=== PATIENT | male | born 2000 | race Hispanic/Latino ===

== ENCOUNTER 2019-03-03 09:21 | Inpatient (IN) | payer SELFPAY ==
[2019-03-03] MEDS ORDERED: ONDANSETRON 4 MG/2 ML VIAL ONE ×2 (10:48→14:01)
[2019-03-03] MEDS ORDERED: MORPHINE 4 MG/ML SYR ONE ×2 (10:48→11:34)
[2019-03-03] MEDS ORDERED: NA CHLORIDE 0.9% 1,000 ML ONE ×2 (10:48→12:20)
[2019-03-03 11:01] LABS: Absolute Lymphocytes (CBC) 1.7 K/uL (0.7-4.9); Basophils % 0.3 % (0-1.3); Eosinophils % 0.4 % (0-4.4); Hematocrit 43.6 % (39.6-49.0); MPV 9.3 fL (7.6-11.3); Monocytes % 7.6 % (3.3-12.3)
[2019-03-03 11:17] LABS: ALT/SGPT 55 U/L (12-78); AST/SGOT 42 U/L (15-37); Albumin 3.9 g/dL (3.4-5.0); Alkaline Phosphatase 142 U/L (45-117); BUN Blood Urea Nitrogen 15 mg/dL (7-18); Bicarbonate 27 mmol/L (21-32); Bilirubin Total 0.9 mg/dL (0.2-1.0); Glucose Level 113 mg/dL (74-106); Potassium 3.7 mmol/L (3.5-5.1); Protein, Total 8.5 g/dL (6.4-8.2); Sodium Level 141 mmol/L (136-145)
[2019-03-03] MEDS ORDERED: TETANUS & DIPHTHERIA TOX,ADULT 0.5 ML VIAL ONE (11:35)
--- NOTE | 2019-03-03 11:52 | RAD REPORT ---
EXAM DESCRIPTION: US - Extremity Nonvascular Limited - 03/03/2019 11:41 am CLINICAL HISTORY: Right groin swelling COMPARISON: None FINDINGS: 5 x 1 x 3 centimeter heterogeneous fluid collection is present which is vascular. This has the appearance of an abscess IMPRESSION: 5 centimeter right groin abscess
[2019-03-03] MEDS ORDERED: PIPER/TAZO/NS 3.375gm 3.375 GM/100 ML BAG ONE (12:13)
--- NOTE | 2019-03-03 12:33 | EDPHYS ---
Physician Documentation [facility] Name: Benjamin Mendiola Age: 18 yrs Sex: Male : 2000 Arrival Date: 03/03/2019 Time: 09:25 Bed 7 Private MD: None, None ED Physician Ned Troy HPI: 03/03 10:40 This 18 yrs old Male presents to ER via Ambulatory with complaints of Abscess. pm1 10:40 The patient presents with an abscess of the suprapubic area. Description: The affected pm1 area is large, 6 inches wide, raised, no drainage but area of pointing that appeared today. Onset: The symptoms/episode began/occurred 4 day(s) ago. Possible cause(s): unknown. Associated signs and symptoms: Pertinent positives: nausea, vomiting, Pertinent negatives: discharge, drainage. Modifying factors: the symptoms are alleviated by nothing, the symptoms are aggravated by nothing. Severity of symptoms: in the emergency department the symptoms are actually worse. The patient has not experienced similar symptoms in the past. The patient has not recently seen a physician. Historical: - Allergies: 09:51 No Known Allergies; iw - Home Meds: 09:51 None [Active]; iw - PMHx: 09:51 None; iw - PSHx: 09:51 None; iw - Immunization history:: Last tetanus immunization: unknown. - Social history:: Smoking status: . - Ebola Screening: : Patient negative for fever greater than or equal to 101.5 degrees Fahrenheit, and additional compatible Ebola Virus Disease symptoms Patient denies exposure to infectious person Patient denies travel to an Ebola-affected area in the 21 days before illness onset No symptoms or risks identified at this time. ROS: 10:51 Eyes: Negative for injury, pain, redness, and discharge. pm1 10:51 Neuro: Negative for headache, weakness, numbness, tingling, and seizure. 10:51 ENT: Negative for injury, pain, and discharge, Neck: Negative for injury, pain, and swelling, Cardiovascular: Negative for chest pain, palpitations, and edema, Abdomen/GI: Negative for abdominal pain, nausea, vomiting, diarrhea, and constipation, Back: Negative for injury and pain, MS/Extremity: Negative for injury and deformity. 10:51 Constitutional: Positive for body aches, Negative for fever. 10:51 Abdomen/GI: Positive for nausea and vomiting, Negative for abdominal pain, diarrhea, constipation. 10:51 Skin: Positive for abscess, cellulitis, of the suprapubic area. 12:51 Respiratory: Positive for cough, with yellow sputum, Negative for shortness of breath, pm1 wheezing. Exam: 11:00 Constitutional: This is a well developed, well nourished patient who is awake, alert, pm1 and in no acute distress. Head/Face: Normocephalic, atraumatic. Eyes: Pupils equal round and reactive to light, extra-ocular motions intact. Lids and lashes normal. Conjunctiva and sclera are non-icteric and not injected. Cornea within normal limits. Periorbital areas with no swelling, redness, or edema. ENT: Nares patent. No nasal discharge, no septal abnormalities noted. Tympanic membranes are normal and external auditory canals are clear. Oropharynx with no redness, swelling, or masses, exudates, or evidence of obstruction, uvula midline. Mucous membranes moist. Neck: Trachea midline, no thyromegaly or masses palpated, and no cervical lymphadenopathy. Supple, full range of motion without nuchal rigidity, or vertebral point tenderness. No Meningismus. Chest/axilla: Normal chest wall appearance and motion. Nontender with no deformity. No lesions are appreciated. Cardiovascular: Regular rate and rhythm with a normal S1 and S2. No gallops, murmurs, or rubs. Normal PMI, no JVD. No pulse deficits. Respiratory: Lungs have equal breath sounds bilaterally, clear to auscultation and percussion. No rales, rhonchi or wheezes noted. No increased work of breathing, no retractions or nasal flaring. Abdomen/GI: Soft, non-tender, with normal bowel sounds. No distension or tympany. No guarding or rebound. No evidence of tenderness throughout. Back: No spinal tenderness. No costovertebral tenderness. Full range of motion. 11:00 MS/ Extremity: Pulses equal, no cyanosis. Neurovascular intact. Full, normal range of motion. 11:00 Skin: Appearance: normal except for affected area, abscess, of the suprapubic area, No drainage. 6 in by 3 in area of indurated area with pointing at central upper area of induration. 11:00 Neuro: Orientation: is normal, Motor: is normal, moves all fours, Sensation: is normal, no obvious gross deficits. Vital Signs: 09:51 BP 132 / 68; Pulse 100; Resp 16; Temp 97.5; Pulse Ox 96% ; Weight 95.25 kg; Height 5 iw ft. 10 in. (177.80 cm); Pain 10/10; 11:30 BP 140 / 91; Pulse 90; Resp 16; Pulse Ox 98% on R/A; Pain 8/10; hb 12:30 BP 136 / 86; Pulse 89; Resp 15; Pulse Ox 100% on R/A; hb 09:51 Body Mass Index 30.13 (95.25 kg, 177.80 cm) iw MDM: 10:16 Patient medically screened. pm1 10:51 Data reviewed: vital signs. Data interpreted: Pulse oximetry: on room air is 96 %. pm1 Interpretation: normal. 12:15 Physician consultation: Yaritza Steen MD was called at 12:10, was contacted at 12:10, pm1 regarding admission, she discussed the case with Dr. Meyers. No need for admission to the hospitalist. Without any preexisting conditions, Dr. Meyers will admit the patient under his service. . 12:24 Physician consultation: Mike Meyers MD was called at 12:15, was contacted at 12:17, pm1 regarding admission, patient's condition, and will see patient in ED, Keep patient NPO, give the patient Vancomycin and clindamycin for MRSA coverage. He will come within the hour to perform I\T\D in the OR. Call supervisor hide house and OR crew for I\T\D. 03/03 10:23 Order name: CBC with Diff pm1 03/03 10:23 Order name: CMP; Complete Time: 11:19 pm1 03/03 10:23 Order name: Procalcitonin; Complete Time: 11:47 pm1 03/03 10:23 Order name: Lactate; Complete Time: 11:19 pm1 03/03 10:25 Order name: CBC with Automated Diff; Complete Time: 11:47 EDMS 03/03 10:24 Order name: Blood Culture Adult (2) pm1 03/03 10:25 Order name: US Extrmty Nonvasular Limited; Complete Time: 11:53 pm1 03/03 11:22 Order name: Wound Culture pm1 03/03 11:53 Order name: NPO; Complete Time: 11:55 pm1 Administered Medications: 10:48 Drug: Zofran 4 mg Route: IVP; Site: right antecubital; hb 11:22 Follow up: Response: No adverse reaction hb 10:49 Drug: NS 0.9% 1000 ml Route: IV; Rate: 1000 ml; Site: right antecubital; hb 11:33 Follow up: Response: No adverse reaction; IV Status: Completed infusion; IV Intake: hb 1000ml 10:49 Drug: morphine 4 mg Route: IVP; Site: right antecubital; hb 11:20 Follow up: Response: No adverse reaction hb 11:24 Drug: morphine 4 mg Route: IVP; Site: right antecubital; hb 12:00 Follow up: Response: No adverse reaction hb 11:44 Drug: Tetanus-Diphtheria Toxoid Adult 0.5 ml {Musculoskeletal Physician: [employer]. Exp: hb 12/08/2020. Lot #: [id number]. } Route: IM; Site: right deltoid; 12:09 Follow up: Response: No adverse reaction hb 12:08 Drug: Zosyn 3.375 grams Route: IVPB; Infused Over: 60 mins; Site: right antecubital; hb 12:08 Drug: NS 0.9% 1000 ml Route: IV; Rate: 100 ml/hr; Site: right antecubital; hb 12:42 Drug: Clindamycin 900 mg Route: IVPB; Infused Over: 30 mins; Site: right antecubital; hb Disposition: 15:17 Co-signature as Attending Physician, Ned Troy MD. Disposition: 03/03/19 12:32 Hospitalization ordered by Mike Meyers for Inpatient Admission. Preliminary diagnosis is Cutaneous abscess of abdominal wall. - Bed requested for Operating Room. - Status is Inpatient Admission. hb - Condition is Stable. - Problem is new. - Symptoms have improved. UTI on Admission? No Signatures: Dispatcher [employer] Remedios Méndez RN RN iw Marinas, Patrick, NP SCIENTIFIC PROGRAMMER ANALYST pm1 Catia Martinez RN RN hb Starr, Gregory, MD MD gs Corrections: (The following items were deleted from the chart) 12:52 10:51 ENT: Negative for injury, pain, and discharge, Neck: Negative for injury, pain, pm1 and swelling, Cardiovascular: Negative for chest pain, palpitations, and edema, Respiratory: Negative for shortness of breath, cough, wheezing, and pleuritic chest pain, Abdomen/GI: Negative for abdominal pain, nausea, vomiting, diarrhea, and constipation, Back: Negative for injury and pain, MS/Extremity: Negative for injury and deformity, pm1 13:06 12:32 Hospitalization Ordered by Mike Meyers MD for Observation. Preliminary diagnosis pm1 is Cutaneous abscess of abdominal wall. Bed requested for Operating Room. Status is Observation. Condition is Stable. Problem is new. Symptoms have improved. UTI on Admission? No. pm1 13:31 13:06 03/03/2019 12:32 Hospitalization Ordered by Mike Meyers MD for Inpatient hb Admission. Preliminary diagnosis is Cutaneous abscess of abdominal wall. Bed requested for Operating Room. Status is Inpatient Admission. Condition is Stable. Problem is new. Symptoms have improved. UTI on Admission? No. pm1
--- NOTE | 2019-03-03 12:33 | ER ---
Nurse's Notes [facility] Name: Benjamin Mendiola Age: 18 yrs Sex: Male : 2000 Arrival Date: 03/03/2019 Time: 09:25 Bed 7 Private MD: None, None Diagnosis: Cutaneous abscess of abdominal wall Presentation: 03/03 09:48 Presenting complaint: Patient states: abscess to right groin area X 4 days, pt states iw about nickel sized head, not draining, area of redness about 6 inches around it, also has been vomiting. Transition of care: patient was not received from another setting of care. Onset of symptoms was February 27, 2019. Risk Assessment: Do you want to hurt yourself or someone else? Patient reports no desire to harm self or others. Initial Sepsis Screen: Does the patient meet any 2 criteria? No. Patient's initial sepsis screen is negative. Does the patient have a suspected source of infection? No. Patient's initial sepsis screen is negative. Care prior to arrival: None. 09:48 Method Of Arrival: Ambulatory iw 09:48 Acuity: ALONSO 3 iw Historical: - Allergies: 09:51 No Known Allergies; iw - Home Meds: 09:51 None [Active]; iw - PMHx: 09:51 None; iw - PSHx: 09:51 None; iw - Immunization history:: Last tetanus immunization: unknown. - Social history:: Smoking status: . - Ebola Screening: : Patient negative for fever greater than or equal to 101.5 degrees Fahrenheit, and additional compatible Ebola Virus Disease symptoms Patient denies exposure to infectious person Patient denies travel to an Ebola-affected area in the 21 days before illness onset No symptoms or risks identified at this time. Screenin:36 Abuse screen: Denies threats or abuse. Denies injuries from another. Nutritional hb screening: No deficits noted. Tuberculosis screening: No symptoms or risk factors identified. Fall Risk None identified. Assessment: 10:30 General: Appears in no apparent distress. uncomfortable, Behavior is cooperative, hb anxious. Pain: Pain currently is 10 out of 10 on a pain scale. Neuro: Level of Consciousness is awake, alert, obeys commands, Oriented to person, place, time, situation. Cardiovascular: Capillary refill < 3 seconds Patient's skin is warm and dry. Respiratory: Airway is patent Trachea midline Respiratory effort is even, unlabored, Respiratory pattern is regular, symmetrical. GI: No signs and/or symptoms were reported involving the gastrointestinal system. : No signs and/or symptoms were reported regarding the genitourinary system. EENT: No signs and/or symptoms were reported regarding the EENT system. Derm: Abscess located on suprapubic area is golf ball sized, has no drainage, is hot to touch, is red, is raised. 11:28 Reassessment: abscess draining purulent greenish yellow fluid, TEACHER ASSISTANT Gume notified, hb wound culture collected. . 11:32 Reassessment: US at bedside. hb 12:11 Reassessment: Patient appears in no apparent distress at this time. Patient and/or hb family updated on plan of care and expected duration. Pain level reassessed. Patient is alert, oriented x 3, equal unlabored respirations, skin warm/dry/pink. 13:00 Reassessment: Patient appears in no apparent distress at this time. Patient and/or hb family updated on plan of care and expected duration. Pain level reassessed. Patient is alert, oriented x 3, equal unlabored respirations, skin warm/dry/pink. Vital Signs: 09:51 BP 132 / 68; Pulse 100; Resp 16; Temp 97.5; Pulse Ox 96% ; Weight 95.25 kg; Height 5 iw ft. 10 in. (177.80 cm); Pain 10/10; 11:30 BP 140 / 91; Pulse 90; Resp 16; Pulse Ox 98% on R/A; Pain 8/10; hb 12:30 BP 136 / 86; Pulse 89; Resp 15; Pulse Ox 100% on R/A; hb 09:51 Body Mass Index 30.13 (95.25 kg, 177.80 cm) iw ED Course: 09:25 Patient arrived in ED. dl4 09:25 None, None is Private Physician. dl4 09:51 Triage completed. iw 09:52 Arm band placed on. iw 10:14 Gume Foreman NP is PHCP. pm1 10:14 Ned Troy MD is Attending Physician. pm1 10:29 Catia Martinez, MITCHELL is Primary Nurse. hb 10:30 Patient has correct armband on for positive identification. Placed in gown. Bed in low hb position. Call light in reach. Side rails up X 1. 10:49 CBC with Diff Sent. hb 11:38 Ultrasound completed. Patient tolerated well. sg3 11:39 US Extrmty Nonvasular Limited In Process Unspecified. EDMS 12:30 Mike Meyers MD is Hospitalizing Provider. pm1 13:29 No provider procedures requiring assistance completed. Patient admitted, IV remains in hb place. Administered Medications: 10:48 Drug: Zofran 4 mg Route: IVP; Site: right antecubital; hb 11:22 Follow up: Response: No adverse reaction hb 10:49 Drug: NS 0.9% 1000 ml Route: IV; Rate: 1000 ml; Site: right antecubital; hb 11:33 Follow up: Response: No adverse reaction; IV Status: Completed infusion; IV Intake: hb 1000ml 10:49 Drug: morphine 4 mg Route: IVP; Site: right antecubital; hb 11:20 Follow up: Response: No adverse reaction hb 11:24 Drug: morphine 4 mg Route: IVP; Site: right antecubital; hb 12:00 Follow up: Response: No adverse reaction hb 11:44 Drug: Tetanus-Diphtheria Toxoid Adult 0.5 ml {Distance Education Director: [employer]. Exp: hb 12/08/2020. Lot #: [id number]. } Route: IM; Site: right deltoid; 12:09 Follow up: Response: No adverse reaction hb 12:08 Drug: Zosyn 3.375 grams Route: IVPB; Infused Over: 60 mins; Site: right antecubital; hb 12:08 Drug: NS 0.9% 1000 ml Route: IV; Rate: 100 ml/hr; Site: right antecubital; hb 12:42 Drug: Clindamycin 900 mg Route: IVPB; Infused Over: 30 mins; Site: right antecubital; hb Intake: 11:33 IV: 1000ml; Total: 1000ml. Outcome: 12:32 Decision to Hospitalize by Provider. pm1 13:29 Admitted to OR accompanied by nurse, via wheelchair, with chart, Report called to roque Haque RN 13:29 Condition: stable 13:29 Instructed on the need for admit, Demonstrated understanding of instructions. 13:31 Patient left the ED. Signatures: Dispatcher [employer] EDRemedios Garcia RN RN iw Marinas, Patrick, TEACHER ASSISTANT TEACHER ASSISTANT pm1 Catia Martinez, RN RN hb Karley Michele sg3 Rashi Chang dl4
[2019-03-03] MEDS ORDERED: CLINDAMYCIN 900MG/D5W 900 MG/50 ML IVPB IV ONE (12:54)
[2019-03-03] MEDS ORDERED: PROPOFOL 200 MG/20 ML VIAL IV ONE (13:33)
[2019-03-03] MEDS ORDERED: FENTANYL CITR 100 MCG/2 ML ONE ×2 (13:34→14:07)
[2019-03-03] MEDS ORDERED: LIDOCAINE 2% MPF 5 ML VIAL ONE (13:35)
[2019-03-03] MEDS: VANCOMYCIN 1.75 GM in NA CHLORIDE 0.9% 500 ML IVPB SCH (13:36)
[2019-03-03] MEDS ORDERED: KETOROLAC 30 MG/ML INJ ONE (14:01)
[2019-03-03] MEDS ORDERED: DEXAMETHASONE 10 MG/ML VIAL ONE (14:01)
--- NOTE | 2019-03-03 14:06 | P.OP ---
Preoperative diagnosis: R Groin abscess Postoperative diagnosis: same Primary procedure: I and D and Debridement R Groin Abscess Anesthesia: gen Estimated blood loss: min Specimen: pus Findings: as above Complications: None Transferred to: Recovery Room Condition: Good
[2019-03-03] MEDS ORDERED: CHLORHEXIDINE GLUCO 4% 120 ML TOP SCH (14:10)
[2019-03-03] MEDS: CLINDAMYCIN INJ 600 MG in NA CHLORIDE 0.9% 50 ML IV SCH (17:19)
--- NOTE | 2019-03-03 17:49 | PREOPHP ---
Date of Admission: 03/03/2019 Reason For Admission: Infection, right groin. History Of Present Illness: The patient is a 18-year-old gentleman, who comes in with 4-day history of right groin infection associated with redness, swelling, minimal discharge; had an ultrasound, whi ch showed an abscess and leukocytosis; was admitted for incision and drainage, IV antibiotics. Awake and alert, no complaint. He had a similar infection couple of years ago, which was MRSA Proteus and Streptococcus pyogenes that was in the axilla and in the hand. Review of Systems: Otherwise, unremarkable. Past Medical History: Negative. Past Surgical History: Previous I and D. Allergies: NO ALLERGIES. Family History: Noncontributory. Social History: Does not smoke. Drinks occasionally. Physical Examination: Vital Signs: Stable, afebrile. General: Awake, alert, oriented x3. Head and Neck: Cranial nerves 2 through 12 are grossly within normal limits. No neck masses. No JV D. Throat clear. Neck is supple. Chest: Clear. Heart: S1 and S2. Abdomen: Soft. Extremities: Neurovascularly intact. Neuro: Nonfocal. On the right groin, there is approximately a 6 x 6 cm erythema, warmth edema with minimal opening wit h minimal discharge, tender. White count is 16.6 with a left shift. Procalcitonin and lactic acid within normal limits. Assessment: Abscess, cellulitis; right groin. Plan: Admit n.p.o., IV fluid, IV antibiotic, to the OR for incision, drainage, and debridement. The patient and family understand the risks, benefits, and alternatives and agrees to procedure. ROEL/MODL Voice ID: [id number]
[2019-03-03] MEDS: MUPIROCIN 2% OINT 22GM TUBE TOP SCH (21:00)
[2019-03-03] MEDS: HYDROCODONE/APAP 7.5/325 MG TAB PO PRN (22:19)
[2019-03-04] MEDS ORDERED: VANCOMYCIN 1 GM/VIAL ONE (00:02)
[2019-03-04] MEDS ORDERED: NA CHLORIDE 0.9% 500 ML ONE (00:02)
[2019-03-04] MEDS: CLINDAMYCIN INJ 600 MG in NA CHLORIDE 0.9% 50 ML IV SCH ×3 (00:30→16:56)
[2019-03-04] MEDS: VANCOMYCIN 1.75 GM in NA CHLORIDE 0.9% 500 ML IVPB SCH ×2 (01:36→13:20)
--- NOTE | 2019-03-04 01:40 | OP ---
Date of Procedure: 03/03/2019 Surgeon: Mike Meyers MD Preoperative Diagnosis: Abscess and cellulitis, right groin. Postoperative Diagnosis: Abscess and cellulitis, right groin. Procedure: Incision, drainage and debridement of right groin abscess. Estimated Blood Loss: Minimal. Specimen: Pus. Finding: As above. Anesthesia: General. Complications: None. Disposition: The patient tolerated the procedure in stable condition, taken to the Recovery in good general condition. Procedure In Detail: The patient was brought to the OR, placed in supine position. General anesthes ia was begun. The patient was prepped and draped in usual sterile fashion. Marcaine 0.5% was infilt rated locally. Then, 15-blade was used to make a 4 cm incision in the right groin. Subcutaneous tis kristopher divided. Pus evacuated. The culture was done. Loculation was broken up. Wound irrigated. Nec rotic tissue debrided. Bleeding controlled with cautery. Wet-to-dry normal saline dressing change a pplied. The patient tolerated the procedure in stable condition, taken to Recovery in good general condition. ROEL/MODL Voice ID: [id number] Report ID: [id number]
[2019-03-04] MEDS: HYDROCODONE/APAP 7.5/325 MG TAB PO PRN ×2 (03:57→07:53)
[2019-03-04 06:15] LABS: Absolute Lymphocytes (CBC) 1.8 K/uL (0.7-4.9); Basophils % 0.1 % (0-1.3); Eosinophils % 0.1 % (0-4.4); Hematocrit 38.3 % (39.6-49.0); Lymphocytes % 13.2 % (15.3-44.8); MPV 9.5 fL (7.6-11.3); Monocytes % 8.9 % (3.3-12.3); RBC Red Blood Cell Count 4.37 M/uL (4.33-5.43)
[2019-03-04] MEDS: HYDROMORPHONE HCL 1 MG/ML INJ IV PRN ×2 (10:12→22:37)
[2019-03-04] MEDS: MUPIROCIN 2% OINT 22GM TUBE TOP SCH ×2 (10:34→20:50)
--- NOTE | 2019-03-04 16:23 | PN ---
Date of Progress Note: 03/04/2019 Subjective: The patient is awake, alert. No complaint. Vital signs stable. Afebrile. White count is still elevated at 13,000. Dressing is clean, dry, intact. Wound did not have any purulence. De creasing erythema. Assessment: Status post incision, drainage, and debridement of right groin abscess and cellulitis. Recommendations: Continue IV antibiotics. Likely discharge tomorrow. Wound care as ordered. Await culture and sensitivity. /MODL Voice ID: [id number] Report ID: [id number]
[2019-03-05] MEDS: CLINDAMYCIN INJ 600 MG in NA CHLORIDE 0.9% 50 ML IV SCH ×2 (00:37→09:16)
[2019-03-05] MEDS: VANCOMYCIN 1.75 GM in NA CHLORIDE 0.9% 500 ML IVPB SCH (01:43)
[2019-03-05 05:39] LABS: Absolute Lymphocytes (CBC) 3.4 K/uL (0.7-4.9); Basophils % 0.4 % (0-1.3); Eosinophils % 1.9 % (0-4.4); Hematocrit 41.5 % (39.6-49.0); Lymphocytes % 31.9 % (15.3-44.8); MPV 9.2 fL (7.6-11.3); Monocytes % 9.5 % (3.3-12.3); RBC Red Blood Cell Count 4.77 M/uL (4.33-5.43)
[2019-03-05] MEDS: MUPIROCIN 2% OINT 22GM TUBE TOP SCH (09:18)
[2019-03-05] MEDS ORDERED: FENTANYL CITR 100 MCG/2 ML ONE (10:47)
[2019-03-05] MEDS: HYDROCODONE/APAP 7.5/325 MG TAB PO PRN (12:20)
[2019-03-05] MEDS ORDERED: ONDANSETRON 4 MG/2 ML VIAL IV ONE (12:48)
[2019-03-05] MEDS ORDERED: ONDANSETRON 4 MG/2 ML VIAL ONE (12:58)
[2019-03-05] MEDS ORDERED: VANCOMYCIN 2 GM in NA CHLORIDE 0.9% 500 ML IVPB SCH (13:00)
[2019-03-05] MEDS: HYDROMORPHONE HCL 1 MG/ML INJ IV PRN (13:17)
--- NOTE | 2019-03-05 16:52 | DS ---
Date of Discharge: 03/05/2019 Admitting Diagnoses: Right groin abscess and cellulitis. Discharge Diagnoses: Right groin abscess and cellulitis. Procedure Performed: Incision, drainage, and debridement of right groin abscess. Hospital Course: The patient is a 18-year-old gentleman who underwent aforementioned procedure, post operatively still had leukocytosis, was kept an extra day for IV antibiotics. Cultures were growing gram-positive cocci and gram-negative rods. Sensitivities are pending. Wound is clean. White count today is normal. He started on a diet, ambulating. Pain controlled with p.o. pain medication. The patient will be discharged to home. Disposition: Home. Condition: Stable. Discharge Instructions: Resume home medications and diet. Activity as tolerated. Cipro 500 mg p.o. q.12, doxycycline 100 mg p.o. b.i.d., Tylenol No. 3 one tablet p.o. q.4 p.r.n. pain. Wet-to-dry nor mal saline dressing changes daily. Follow up in my office in 1 week. Bactroban cream to nose and th e umbilicus b.i.d. and Hibiclens soap. /MODL Voice ID: [id number] Report ID: [id number]
== END 2019-03-05 14:54 | disposition home or self-care (01) | DRG 581 ==
LOC: ER 09:21 → ERHOLD 13:03 → 2ND 14:36
PROVIDERS: ADMIT Surgery; ATTEND Surgery
PROC: 0JDC0ZZ Extraction of Pelvic Region Subcutaneous Tissue and Fascia, Open Approach (ICD-10-PCS; 2019-03-03)
PROC: 0J9C0ZZ Drainage of Pelvic Region Subcutaneous Tissue and Fascia, Open Approach (ICD-10-PCS; principal; 2019-03-03 13:30)
DX: L02.214 Cutaneous abscess of groin (principal); L03.314 Cellulitis of groin; B96.89 Other specified bacterial agents as the cause of diseases classified elsewhere; Z23 Encounter for immunization
CPT/HCPCS: 36415; 76882; 80053; 80202; 83605; 84145; 85025; 87040; 87070; 87205; 90471; 90714; 96361; 96374; 96375; 99285; J1100; J1170; J2405; J2543; J2704; J3010; J7030

== ENCOUNTER 2019-05-02 05:47 | Emergency (ER) | payer SELFPAY ==
[2019-05-02] MEDS ORDERED: MORPHINE 4 MG/ML SYR ONE (06:29)
[2019-05-02] MEDS ORDERED: ONDANSETRON 4 MG/2 ML VIAL ONE (06:29)
[2019-05-02 07:24] LABS: Absolute Lymphocytes (CBC) 2.2 K/uL (0.7-4.9); Basophils % 0.4 % (0-1.3); Lymphocytes % 17.2 % (15.3-44.8); RBC Red Blood Cell Count 4.42 M/uL (4.33-5.43)
[2019-05-02 07:38] LABS: BUN Blood Urea Nitrogen 18 mg/dL (7-18); Bicarbonate 26 mmol/L (21-32); Glucose Level 112 mg/dL (74-106); Potassium 3.9 mmol/L (3.5-5.1); Sodium Level 141 mmol/L (136-145)
[2019-05-02] MEDS ORDERED: LIDOCAINE 1% MPF 30 ML VIAL ONE (07:44)
[2019-05-02] MEDS ORDERED: HYDROMORPHONE HCL 0.5 MG/0.5 ML INJ ONE (08:08)
[2019-05-02] MEDS ORDERED: HYDROMORPHONE HCL 1 MG/ML INJ ONE (08:47)
--- NOTE | 2019-05-02 09:16 | ER ---
Nurse's Notes [facility] Name: Benjamin Mendiola Age: 18 yrs Sex: Male : 2000 Arrival Date: 05/02/2019 Time: 05:49 Bed 7 Private MD: Diagnosis: Pilonidal cyst with abscess Presentation: 05/02 06:06 Presenting complaint: Patient states: Abscess to top of buttocks x 5-6 days; States lp1 taking left over Doxycycline from previous surgery x 3 days with no relief; Hx of similar abscess to groin about a month ago. Transition of care: patient was not received from another setting of care. Onset of symptoms was May 02, 2019. Risk Assessment: Do you want to hurt yourself or someone else? Patient reports no desire to harm self or others. Initial Sepsis Screen: Does the patient meet any 2 criteria? No. Patient's initial sepsis screen is negative. Does the patient have a suspected source of infection? No. Patient's initial sepsis screen is negative. Care prior to arrival: None. 06:06 Method Of Arrival: Ambulatory lp1 06:06 Acuity: ALONSO 4 lp1 Historical: - Allergies: 06:09 Aspirin; lp1 - Home Meds: 06:09 None [Active]; lp1 - PMHx: 06:09 None; lp1 - PSHx: 06:09 Abscess removal; lp1 - Immunization history:: Adult Immunizations up to date. - Social history:: Smoking status: Patient/guardian denies using tobacco, Patient uses street drugs, marijuana. - Ebola Screening: : No symptoms or risks identified at this time. Screenin:11 Abuse screen: Denies threats or abuse. Denies injuries from another. Nutritional lp1 screening: No deficits noted. Tuberculosis screening: No symptoms or risk factors identified. Fall Risk None identified. Assessment: 06:09 General: Appears in no apparent distress. Behavior is calm. Pain: Complains of pain in lp1 coccyx Pain currently is 8 out of 10 on a pain scale. Neuro: Level of Consciousness is awake, alert, obeys commands, Oriented to person, place, time, situation. Cardiovascular: Patient's skin is warm and dry. Respiratory: Respiratory effort is even, unlabored. GI: No signs and/or symptoms were reported involving the gastrointestinal system. : No signs and/or symptoms were reported regarding the genitourinary system. EENT: No signs and/or symptoms were reported regarding the EENT system. Derm: Skin is pink, warm \T\ dry. Abscess located on coccyx is half dollar sized, has no drainage, is hot to touch, is red, is raised. Musculoskeletal: No deficits noted. 08:18 Reassessment: Patient appears in no apparent distress at this time. Patient and/or sg family updated on plan of care and expected duration. Pain level reassessed. Patient is alert, oriented x 3, equal unlabored respirations, skin warm/dry/pink. awaiting Ulysses PAPPAS for I/D. Vital Signs: 06:09 BP 123 / 67; Pulse 86; Resp 18; Temp 98.7; Pulse Ox 98% on R/A; Weight 95.25 kg; Pain lp1 8/10; 08:00 BP 122 / 66; Pulse 87; Resp 17; Pulse Ox 100% on R/A; Pain 8/10; sg ED Course: 05:49 Patient arrived in ED. cl3 06:06 Nga Hastings, RN is Primary Nurse. lp1 06:08 Triage completed. lp1 06:09 Arm band placed on left wrist. lp1 06:11 Patient has correct armband on for positive identification. Placed in gown. lp1 06:17 [facility] Se[facility]. jr8 06:17 Ned Troy MD is Attending Physician. jr8 06:35 Initial lab(s) drawn, by me, sent to lab. Missed attempt(s): 20 gauge in right lp1 antecubital area. 06:45 Inserted saline lock: 22 gauge in right hand, using aseptic technique. lp1 07:15 Primary Nurse role handed off by Nga Hastings, MITCHELL sg 07:15 Handy Stone, MITCHELL is Primary Nurse. sg 07:15 No provider procedures requiring assistance completed. Lab(s) recollected, by me, sent sg to lab. 08:40 Assist provider with I \T\ D: of an abscess on pilonidal cyst Set up I\T\D tray. Performed sg by Ulysses PAPPAS Wound packed. iodoform gauze, Dressing with ABD pad, Patient tolerated well. 09:15 Mike Meyers MD is Referral Physician. jr8 09:23 IV discontinued, intact, bleeding controlled, No redness/swelling at site. Pressure ss dressing applied. Administered Medications: 06:46 Drug: morphine 4 mg {Note: RASS 0.} Route: IVP; Site: right hand; lp1 07:40 Follow up: Response: No adverse reaction; Pain is unchanged, physician notified; RASS: sg Restless (+1) 06:46 Drug: Zofran 4 mg Route: IVP; Site: right hand; lp1 07:40 Follow up: Response: No adverse reaction; RASS: Restless (+1) sg 08:10 Drug: Dilaudid 0.5 mg {Note: RASS +1 .} Route: IVP; Site: right wrist; sg 08:40 Follow up: Response: No adverse reaction; Pain is unchanged, physician notified; RASS: sg Agitated (+2) 08:17 Drug: Lidocaine (1 %) 1 vials {Note: medication administered by Gucci PAPPAS.} Volume: sg 20 ml; Route: Infiltration; 08:45 Drug: Dilaudid 1 mg {Note: RASS of +2.} Route: IVP; Site: right wrist; sg 09:23 Follow up: Response: No adverse reaction; Pain is unchanged, physician notified; RASS: sg Alert and Calm (0) Outcome: 09:15 Discharge ordered by . jr8 09:23 Discharged to home ambulatory, with family. 09:23 Condition: improved 09:23 Discharge instructions given to patient, family, Instructed on discharge instructions, follow up and referral plans. medication usage, Demonstrated understanding of instructions, follow-up care, medications, wound care, Prescriptions given X 2. 09:24 Patient left the ED. Signatures: Handy Stone RN RN sg Patrica Rios RN RN Nga Hastings RN RN lp1 Ulysses Seay PA PA jr8 Nya Simon cl3 Corrections: (The following items were deleted from the chart) 08:16 08:10 Dilaudid 0.5 mg IVP in right wrist sg sg
--- NOTE | 2019-05-02 09:17 | EDPHYS ---
Physician Documentation [facility] Name: Benjamin Mendiola Age: 18 yrs Sex: Male : 2000 Arrival Date: 05/02/2019 Time: 05:49 Bed 7 Private MD: ED Physician Ned Troy HPI: 05/02 06:45 This 18 yrs old Male presents to ER via Ambulatory with complaints of Abscess. jr8 06:45 The patient presents with an abscess of the sacral region. Description: The affected jr8 area is moderate sized, well demarcated, erythematous, fluctuant. Onset: The symptoms/episode began/occurred gradually, over the last few days. Possible cause(s): unknown. Associated signs and symptoms: The patient has no apparent associated signs or symptoms. Modifying factors: the symptoms are alleviated by nothing, the symptoms are aggravated by movement, pressure, sitting, squeezing the lesion and expressing the contents, touching. Severity of symptoms: At their worst the symptoms were mild, in the emergency department the symptoms are unchanged. The patient has experienced a previous episode. The patient has not recently seen a physician. Historical: - Allergies: 06:09 Aspirin; lp1 - Home Meds: 06:09 None [Active]; lp1 - PMHx: 06:09 None; lp1 - PSHx: 06:09 Abscess removal; lp1 - Immunization history:: Adult Immunizations up to date. - Social history:: Smoking status: Patient/guardian denies using tobacco, Patient uses street drugs, marijuana. - Ebola Screening: : No symptoms or risks identified at this time. ROS: 06:45 Eyes: Negative for injury, pain, redness, and discharge, ENT: Negative for injury, jr8 pain, and discharge, Neck: Negative for injury, pain, and swelling, Cardiovascular: Negative for chest pain, palpitations, and edema, Respiratory: Negative for shortness of breath, cough, wheezing, and pleuritic chest pain, Abdomen/GI: Negative for abdominal pain, nausea, vomiting, diarrhea, and constipation, Back: Negative for injury and pain, MS/Extremity: Negative for injury and deformity, Neuro: Negative for headache, weakness, numbness, tingling, and seizure. 06:45 Skin: Positive for abscess. Exam: 06:45 Eyes: Pupils equal round and reactive to light, extra-ocular motions intact. Lids and jr8 lashes normal. Conjunctiva and sclera are non-icteric and not injected. Cornea within normal limits. Periorbital areas with no swelling, redness, or edema. ENT: Nares patent. No nasal discharge, no septal abnormalities noted. Tympanic membranes are normal and external auditory canals are clear. Oropharynx with no redness, swelling, or masses, exudates, or evidence of obstruction, uvula midline. Mucous membranes moist. Neck: Trachea midline, no thyromegaly or masses palpated, and no cervical lymphadenopathy. Supple, full range of motion without nuchal rigidity, or vertebral point tenderness. No Meningismus. Cardiovascular: Regular rate and rhythm with a normal S1 and S2. No gallops, murmurs, or rubs. Normal PMI, no JVD. No pulse deficits. Respiratory: Lungs have equal breath sounds bilaterally, clear to auscultation and percussion. No rales, rhonchi or wheezes noted. No increased work of breathing, no retractions or nasal flaring. Abdomen/GI: Soft, non-tender, with normal bowel sounds. No distension or tympany. No guarding or rebound. No evidence of tenderness throughout. Back: No spinal tenderness. No costovertebral tenderness. Full range of motion. MS/ Extremity: Pulses equal, no cyanosis. Neurovascular intact. Full, normal range of motion. Neuro: Awake and alert, GCS 15, oriented to person, place, time, and situation. Cranial nerves II-XII grossly intact. Motor strength 5/5 in all extremities. Sensory grossly intact. Cerebellar exam normal. Normal gait. 06:45 Skin: Patient has moderate sized pilonidal abscess present at the sacral region with erythema and fluctuance present. No surrounding cellulitis . Vital Signs: 06:09 BP 123 / 67; Pulse 86; Resp 18; Temp 98.7; Pulse Ox 98% on R/A; Weight 95.25 kg; Pain lp1 8/10; 08:00 BP 122 / 66; Pulse 87; Resp 17; Pulse Ox 100% on R/A; Pain 8/10; sg Procedures: 09:14 I \T\ D: Incision and drainage was performed for an abscess of the pilonidal cyst Prepped jr8 with Betadine, Anesthetized with 20 ml's 1% Lidocaine. Incised with #11 blade. Drained large amount purulent fluid. bloody fluid. Loculations removed. Abscess cavity explored. Packed with iodoform gauze, Dressing: sterile 4x4 gauze, the patient tolerated the procedure well. MDM: 06:17 Patient medically screened. jr8 09:14 Data reviewed: vital signs, nurses notes, lab test result(s), and as a result, I will jr8 discharge patient. Data interpreted: Pulse oximetry: on room air is 100 %. Interpretation: normal. Counseling: I had a detailed discussion with the patient and/or guardian regarding: the historical points, exam findings, and any diagnostic results supporting the discharge/admit diagnosis, lab results, the need for outpatient follow up, a general surgeon, to return to the emergency department if symptoms worsen or persist or if there are any questions or concerns that arise at home. Response to treatment: the patient's symptoms have markedly improved after treatment. 05/02 06:27 Order name: CBC with Diff; Complete Time: 07:36 [facility] 05/02 06:27 Order name: Basic Metabolic Panel; Complete Time: 07:59 [facility] 05/02 06:27 Order name: IV; Complete Time: 06:44 [facility] 05/02 07:07 Order name: Labs - recollect needed; Complete Time: 07:14 eb Administered Medications: 06:46 Drug: morphine 4 mg {Note: RASS 0.} Route: IVP; Site: right hand; lp1 07:40 Follow up: Response: No adverse reaction; Pain is unchanged, physician notified; RASS: sg Restless (+1) 06:46 Drug: Zofran 4 mg Route: IVP; Site: right hand; lp1 07:40 Follow up: Response: No adverse reaction; RASS: Restless (+1) sg 08:10 Drug: Dilaudid 0.5 mg {Note: RASS +1 .} Route: IVP; Site: right wrist; sg 08:40 Follow up: Response: No adverse reaction; Pain is unchanged, physician notified; RASS: sg Agitated (+2) 08:17 Drug: Lidocaine (1 %) 1 vials {Note: medication administered by Gucci ALMAZAN} Volume: sg 20 ml; Route: Infiltration; 08:45 Drug: Dilaudid 1 mg {Note: RASS of +2.} Route: IVP; Site: right wrist; sg 09:23 Follow up: Response: No adverse reaction; Pain is unchanged, physician notified; RASS: sg Alert and Calm (0) Disposition: 05/02/19 09:15 Discharged to Home. Impression: Pilonidal cyst with abscess. - Condition is Stable. - Discharge Instructions: Skin Abscess, Pilonidal Cyst, Incision and Drainage of a Pilonidal Cyst, Care After. - Prescriptions for Tylenol- Codeine #3 300-30 mg Oral Tablet - take 2 tablets by ORAL route every 6 hours As needed; 20 tablet. Bactrim DS 800- 160 mg Oral Tablet - take 1 tablet by ORAL route every 12 hours for 7 days; 14 tablet. - Work release form, Medication Reconciliation Form, Thank You Letter, Antibiotic Education, Prescription Opioid Use form. - Follow up: Mike Meyers MD; When: 48 Hours; Reason: Wound Recheck, Recheck today's complaints, Continuance of care, Re-evaluation by your physician. - Problem is new. - Symptoms have improved. Signatures: Dispatcher [employer] EDMS Handy Stone RN MITCHELL Patrica Rios RN RN ss Nga Hastings RN RN lp1 Ulysses Seay PA PA jr8 Ruby Dahl Corrections: (The following items were deleted from the chart) 09:24 09:15 05/02/2019 09:15 Discharged to Home. Impression: Pilonidal cyst with abscess. ss Condition is Stable. Forms are Work release form, Medication Reconciliation Form, Thank You Letter, Antibiotic Education, Prescription Opioid Use. Follow up: Dr. Mike Meyers; When: 48 Hours; Reason: Wound Recheck, Recheck today's complaints, Continuance of care, Re-evaluation by your physician. Problem is new. Symptoms have improved. jr8
== END 2019-05-02 09:24 | disposition home or self-care (01) ==
LOC: ER 05:47
PROC: 0H98XZZ Drainage of Buttock Skin, External Approach (ICD-10-PCS; principal; 2019-05-02)
DX: L05.01 Pilonidal cyst with abscess (principal)
CPT/HCPCS: 36415; 80048; 85025; 99284; J1170; J2405

== ENCOUNTER 2020-01-04 10:08 | Emergency (ER) | payer SELFPAY ==
--- NOTE | 2020-01-04 10:26 | EDPHYS ---
Physician Documentation [facility] Name: Benjamin Mendiola Age: 19 yrs Sex: Male : 2000 Arrival Date: 01/04/2020 Time: 10:10 Bed 6 Private MD: ED Physician Dann Parks HPI: 01/03 10:23 This 19 yrs old Male presents to ER via Ambulatory with complaints of Broken snw Tooth. 10:23 Onset: The symptoms/episode began/occurred suddenly. Associated signs and symptoms: The snw patient has no apparent associated signs or symptoms. Modifying factors: The patient symptoms are alleviated by nothing, the patient symptoms are aggravated by eating food, talking. It is unknown whether or not the patient has had similar symptoms in the past. The patient has not recently seen a physician. Historical: - Allergies: 10: Aspirin; ca1 - Home Meds: 10: None [Active]; ca1 - PMHx: 10: None; ca1 - PSHx: 10: None; ca1 - Immunization history:: Adult Immunizations up to date, Flu vaccine is not up to date. - Social history:: Smoking status: Patient denies any tobacco usage or history of. ROS: 10:23 Constitutional: Negative for fever, chills, and weight loss, Eyes: Negative for injury, snw pain, redness, and discharge, ENT: Negative for injury and discharge, pt states he had a hole in his tooth, messed with it yesterday and tooth broke. Neck: Negative for injury, pain, and swelling, Cardiovascular: Negative for chest pain, palpitations, and edema, Respiratory: Negative for shortness of breath, cough, wheezing, and pleuritic chest pain, Abdomen/GI: Negative for abdominal pain, nausea, vomiting, diarrhea, and constipation, Back: Negative for injury and pain, : Negative for injury, bleeding, discharge, and swelling, MS/Extremity: Negative for injury and deformity, Skin: Negative for injury, rash, and discoloration, Neuro: Negative for headache, weakness, numbness, tingling, and seizure, Psych: Negative for depression, anxiety, suicide ideation, homicidal ideation, and hallucinations. Exam: 10:22 Head/Face: Normocephalic, atraumatic. Eyes: Pupils equal round and reactive to light, snw extra-ocular motions intact. Lids and lashes normal. Conjunctiva and sclera are non-icteric and not injected. Cornea within normal limits. Periorbital areas with no swelling, redness, or edema. Neck: Trachea midline, no thyromegaly or masses palpated, and no cervical lymphadenopathy. Supple, full range of motion without nuchal rigidity, or vertebral point tenderness. No Meningismus. Chest/axilla: Normal chest wall appearance and motion. Nontender with no deformity. No lesions are appreciated. Cardiovascular: Regular rate and rhythm with a normal S1 and S2. No gallops, murmurs, or rubs. Normal PMI, no JVD. No pulse deficits. Respiratory: Lungs have equal breath sounds bilaterally, clear to auscultation and percussion. No rales, rhonchi or wheezes noted. No increased work of breathing, no retractions or nasal flaring. Abdomen/GI: Soft, non-tender, with normal bowel sounds. No distension or tympany. No guarding or rebound. No evidence of tenderness throughout. Back: No spinal tenderness. No costovertebral tenderness. Full range of motion. Skin: Warm, dry with normal turgor. Normal color with no rashes, no lesions, and no evidence of cellulitis. MS/ Extremity: Pulses equal, no cyanosis. Neurovascular intact. Full, normal range of motion. Neuro: Awake and alert, GCS 15, oriented to person, place, time, and situation. Cranial nerves II-XII grossly intact. Motor strength 5/5 in all extremities. Sensory grossly intact. Cerebellar exam normal. Normal gait. Psych: Awake, alert, with orientation to person, place and time. Behavior, mood, and affect are within normal limits. 10:22 Constitutional: The patient appears alert, awake, in obvious pain. 10:22 ENT: External ear(s): are unremarkable, Ear canal(s): are normal, TM's: are normal, Nose: is normal, Mouth: is normal, Posterior pharynx: is normal, Dental exam: dental caries, fractured teeth are noted, specifically the lower left first molar (#19), pain, that is moderate, that is severe, specifically in the lower left first molar (#19), Voice: is normal. Vital Signs: 10:15 BP 153 / 93; Pulse 68; Resp 17 S; Temp 97.3(TE); Pulse Ox 99% on R/A; Weight 99.79 kg ca1 (R); Height 5 ft. 9 in. (175.26 cm) (R); Pain 10; 10:15 Body Mass Index 32.49 (99.79 kg, 175.26 cm) ca1 MDM: 10:12 Patient medically screened. snw 10:28 Data reviewed: vital signs, nurses notes. Data interpreted: Pulse oximetry: on room air snw is 99 %. Interpretation: normal. Counseling: I had a detailed discussion with the patient and/or guardian regarding: the historical points, exam findings, and any diagnostic results supporting the discharge/admit diagnosis, the presence of at least one elevated blood pressure reading (>120/80) during this emergency department visit, the need for outpatient follow up. Special discussion: I have referred the patient to see his PCP for further evaluation of high blood pressure. Based on the history and exam findings, there is no indication for further emergent testing or inpatient evaluation. I discussed with the patient/guardian the need to see a dentist for further evaluation of the symptoms. I discussed with the patient/guardian the need to see the primary care provider for further evaluation of the symptoms. Administered Medications: 10:38 Drug: Clindamycin 300 mg Route: PO; ca1 10:53 Follow up: Response: No adverse reaction aa5 10:40 Drug: [facility] (7.5 mg-325 mg) 1 tabs Route: PO; ca1 10:52 Follow up: Response: No adverse reaction aa5 10:41 Drug: TORadol 30 mg Route: IM; Site: left deltoid; ca1 10:52 Follow up: Response: No adverse reaction aa5 Disposition: 10:51 Co-signature as Attending Physician, Dann Parks MD. rn Disposition: 01/04/20 10:26 Discharged to Home. Impression: Dental caries on pit and fissure surface penetrating into dentin. - Condition is Stable. - Discharge Instructions: Dental Caries, Adult, Dental Pain, Diet and Dental Disease, Preventive Dental Care, Adult. - Prescriptions for chlorhexidine gluconate 0.12 % Mucous Membrane mouthwash - place 15 milliliter by MUCOUS MEMBRANE route 2 times per day after brushing teeth, swish in mouth for 30 seconds then spit out; 480 milliliter. Clindamycin HCl 300 mg Oral Capsule - take 1 capsule by ORAL route every 6 hours for 10 days; 40 capsule. Mobic 7.5 mg Oral Tablet - take 1 tablet by ORAL route 2 times per day take with food; 20 tablet. - Medication Reconciliation Form, Thank You Letter, Antibiotic Education, Prescription Opioid Use form. - Follow up: Emergency Department; When: As needed; Reason: Worsening of condition. Follow up: Private Physician; When: 2 - 3 days; Reason: Recheck today's complaints, Continuance of care, Re-evaluation by your physician. Signatures: Jazmin Biswas, REFERRAL COORDINATOR-C REFERRAL COORDINATOR-Csnw Dann Parks MD MD rn Sheeba Barber RN RN aa5 Beatriz Mims RN RN ca1 Corrections: (The following items were deleted from the chart) 10:50 10:26 01/04/2020 10:26 Discharged to Home. Impression: Dental caries on pit and fissure aa5 surface penetrating into dentin. Condition is Stable. Forms are Medication Reconciliation Form, Thank You Letter, Antibiotic Education, Prescription Opioid Use. Follow up: Emergency Department; When: As needed; Reason: Worsening of condition. Follow up: Private Physician; When: 2 - 3 days; Reason: Recheck today's complaints, Continuance of care, Re-evaluation by your physician. snw
--- NOTE | 2020-01-04 10:26 | ER ---
Nurse's Notes [facility] Name: Benjamin Mendiola Age: 19 yrs Sex: Male : 2000 Arrival Date: 01/04/2020 Time: 10:10 Bed 6 Private MD: Diagnosis: Dental caries on pit and fissure surface penetrating into dentin Presentation: 01/03 10:15 Chief complaint: Patient states: broken tooth since yesterday, on the bottom left. ca1 Reports pain at the area. Coronavirus screen: Proceed with normal triage. Patient denies a cough. Patient denies shortness of breath or difficulty breathing. Patient denies measured and/or subjective temperature greater than 100.4F prior to today's visit. Patient denies travel on a cruise ship or to a country the [facility] currently lists as an affected area. Patient denies contact with known and/or suspected case of COVID-19. Ebola Screen: Patient negative for fever greater than or equal to 101.5 degrees Fahrenheit, and additional compatible Ebola Virus Disease symptoms Patient denies exposure to infectious person. Patient denies travel to an Ebola-affected area in the 21 days before illness onset. No symptoms or risks identified at this time. Initial Sepsis Screen: Does the patient meet any 2 criteria? Yes Does the patient have a suspected source of infection? No. Patient's initial sepsis screen is negative. Risk Assessment: Do you want to hurt yourself or someone else? Patient reports no desire to harm self or others. Onset of symptoms was January 03, 2020. 10:15 Method Of Arrival: Ambulatory ca1 10:15 Acuity: ALONSO 5 ca1 Triage Assessment: 10:17 General: Appears in no apparent distress. comfortable, Behavior is calm, cooperative, ca1 appropriate for age. Pain: Complains of pain in lower left second bicuspid Pain currently is 10 out of 10 on a pain scale. EENT: Dental caries noted in lower left second bicuspid (#20). Neuro: Level of Consciousness is awake, alert, obeys commands, Oriented to person, place, time, situation. Derm: Skin is intact, is healthy with good turgor, Skin is pink, warm \T\ dry. Musculoskeletal: Circulation, motion, and sensation intact. Capillary refill < 3 seconds. Historical: - Allergies: 10:17 Aspirin; ca1 - Home Meds: 10:17 None [Active]; ca1 - PMHx: 10:17 None; ca1 - PSHx: 10:17 None; ca1 - Immunization history:: Adult Immunizations up to date, Flu vaccine is not up to date. - Social history:: Smoking status: Patient denies any tobacco usage or history of. Screenin:19 Abuse screen: Denies threats or abuse. Denies injuries from another. Nutritional ca1 screening: No deficits noted. Nutritional screening: No deficits noted. Tuberculosis screening: No symptoms or risk factors identified. Fall Risk None identified. Assessment: 10:19 Reassessment: SEE TRIAGE ASSESSMENT. ca1 10:43 Reassessment: Patient is alert, oriented x 3, equal unlabored respirations, skin aa5 warm/dry/pink. Vital Signs: 10:15 BP 153 / 93; Pulse 68; Resp 17 S; Temp 97.3(TE); Pulse Ox 99% on R/A; Weight 99.79 kg ca1 (R); Height 5 ft. 9 in. (175.26 cm) (R); Pain 10/10; 10:15 Body Mass Index 32.49 (99.79 kg, 175.26 cm) ca1 ED Course: 10:10 Patient arrived in ED. ag5 10:10 Beatriz Mims, MITCHELL is Primary Nurse. ca1 10:12 Jazmin Biswas FNP-C is PHCP. snw 10:12 Dann Parks MD is Attending Physician. snw 10:17 Triage completed. ca1 10:17 Arm band placed on right wrist. ca1 10:19 Patient has correct armband on for positive identification. Bed in low position. Call ca1 light in reach. Side rails up X 1. Pulse ox on. NIBP on. 10:48 No provider procedures requiring assistance completed. Patient did not have IV access aa5 during this emergency room visit. Administered Medications: 10:38 Drug: Clindamycin 300 mg Route: PO; ca1 10:53 Follow up: Response: No adverse reaction aa5 10:40 Drug: Hodges (7.5 mg-325 mg) 1 tabs Route: PO; ca1 10:52 Follow up: Response: No adverse reaction aa5 10:41 Drug: TORadol 30 mg Route: IM; Site: left deltoid; ca1 10:52 Follow up: Response: No adverse reaction aa5 Outcome: 10:26 Discharge ordered by . feliberto 10:49 Discharged to home ambulatory. aa5 10:49 Condition: stable 10:49 Discharge instructions given to patient, Instructed on discharge instructions, follow up and referral plans. medication usage, Demonstrated understanding of instructions, follow-up care, medications, Prescriptions given X 3. 10:53 Patient left the ED. aa5 Signatures: Jazmin Biswas, DEMURRAGE AGENT-C DEMURRAGE AGENT-Csnw Sheeba Barber RN RN aa5 Beatriz Mims RN RN ca1 Jay Le ag5 Corrections: (The following items were deleted from the chart) 10:53 10:50 Patient left the ED. aa5 aa5
[2020-01-04] MEDS ORDERED: KETOROLAC 30 MG/ML INJ ONE (10:38)
[2020-01-04] MEDS ORDERED: HYDROCODONE/APAP 7.5/325 MG TAB ONE (10:38)
[2020-01-04 10:58] VITALS: BP 153/93; TEMP 97.3; O2SAT 99
== END 2020-01-04 10:50 | disposition home or self-care (01) ==
LOC: ER 10:08
DX: K02.52 Dental caries on pit and fissure surface penetrating into dentin (principal); Z88.6 Allergy status to analgesic agent
CPT/HCPCS: 96372; 99283

== ENCOUNTER 2020-01-19 04:25 | Emergency (ER) | payer SELFPAY ==
--- NOTE | 2020-01-19 05:40 | ER ---
Nurse's Notes [facility] Name: Benjamin Mendiola Age: 19 yrs Sex: Male : 2000 Arrival Date: 01/19/2020 Time: 04:27 Bed 11 Private MD: Diagnosis: Cracked tooth;Dental caries Presentation: 01/18 04:45 Chief complaint: Patient states: I was messing with my tooth and it broke; States pain lp1 to lower mouth. Care prior to arrival: None. 04:45 Acuity: ALONSO 4 lp1 04:45 Method Of Arrival: Ambulatory lp1 04:46 Coronavirus screen: Proceed with normal triage. Ebola Screen: No symptoms or risks lp1 identified at this time. Initial Sepsis Screen: Does the patient meet any 2 criteria? No. Patient's initial sepsis screen is negative. Does the patient have a suspected source of infection? No. Patient's initial sepsis screen is negative. Risk Assessment: Do you want to hurt yourself or someone else? Patient reports no desire to harm self or others. Onset of symptoms was January 19, 2020. Onset of symptoms was January 19, 2020 at 02:30. 04:48 Note Patient is taking Clindamycin from previous ER visit for tooth. lp1 Historical: - Allergies: 04:48 No Known Drug Allergies; lp1 - Home Meds: 04:48 Clindamycin Oral [Active]; lp1 - PMHx: 04:48 None; lp1 - PSHx: 04:48 None; lp1 - Immunization history:: Adult Immunizations up to date. - Social history:: Smoking status: Patient reports the use of cigarette tobacco products, cigars. - Family history:: not pertinent. Screenin:49 Abuse screen: Denies threats or abuse. Denies injuries from another. Nutritional lp1 screening: No deficits noted. Tuberculosis screening: No symptoms or risk factors identified. Fall Risk None identified. Assessment: 05:00 General: Appears uncomfortable, Behavior is appropriate for age. Pain: Complains of lp1 pain in mouth Pain currently is 9 out of 10 on a pain scale. Quality of pain is described as sharp. Neuro: No deficits noted. Cardiovascular: No deficits noted. Respiratory: No deficits noted. GI: No signs and/or symptoms were reported involving the gastrointestinal system. : No signs and/or symptoms were reported regarding the genitourinary system. EENT: Oral mucosa is moist. Poor dentition noted. Dental caries noted in lower right first bicuspid (#28). Derm: Skin is pink, warm \T\ dry. Musculoskeletal: No deficits noted. Vital Signs: 04:46 BP 129 / 85; Pulse 80; Resp 18; Temp 98.1(O); Pulse Ox 98% on R/A; Weight 99.79 kg (R); lp1 Height 5 ft. 9 in. (175.26 cm); Pain 10/10; 04:46 Body Mass Index 32.49 (99.79 kg, 175.26 cm) lp1 ED Course: 04:27 Patient arrived in ED. ds1 04:46 Triage completed. lp1 04:47 Arm band placed on. lp1 04:49 Patient has correct armband on for positive identification. lp1 04:52 Jacky Chapin MD is Attending Physician. [facility] 05:39 Yemi Flannery DDS is Referral Physician. [facility] 05:41 Nga Hastings, RN is Primary Nurse. lp1 05:54 No provider procedures requiring assistance completed. Patient did not have IV access lp1 during this emergency room visit. Administered Medications: 05:51 Drug: Motrin 800 mg Route: PO; lp1 05:52 Follow up: Response: Medication administered at discharge. lp1 Outcome: 05:39 Discharge ordered by . [facility] 05:52 Discharged to home ambulatory. lp1 05:52 Condition: good 05:52 Discharge instructions given to patient, Instructed on discharge instructions, follow up and referral plans. medication usage, Demonstrated understanding of instructions, follow-up care, medications, Prescriptions given X 3. 05:54 Patient left the ED. lp1 Signatures: Jacky Chapin MD MD cha Sanford, Demi ds1 Nga Hastings, RN RN lp1 Corrections: (The following items were deleted from the chart) 04:48 04:48 Social history: Smoking status: Reported history of juuling and/or vaping. lp1 lp1
--- NOTE | 2020-01-19 05:41 | EDPHYS ---
Physician Documentation [facility] Name: Benjamin Mendiola Age: 19 yrs Sex: Male : 2000 Arrival Date: 01/19/2020 Time: 04:27 Bed 11 Private MD: ED Physician Jacky Chapin HPI: 01/18 05:32 This 19 yrs old Male presents to ER via Ambulatory with complaints of Dental enrico Injury - Broken Tooth. 05:35 The patient presents with broken tooth/teeth, pain. The problem is located in the lower enrico right first bicuspid. Onset: The symptoms/episode began/occurred 1 day(s) ago. Duration: The symptoms are continuous, and are steadily getting worse. Modifying factors: The symptoms are alleviated by nothing, the symptoms are aggravated by air, chewing, cold fluids. Associated signs and symptoms: The patient has no apparent associated signs or symptoms. Severity of symptoms: At their worst the symptoms were mild, moderate, in the emergency department the symptoms are unchanged. The patient has experienced similar episodes in the past, a few times. Historical: - Allergies: 04:48 No Known Drug Allergies; lp1 - Home Meds: 04:48 Clindamycin Oral [Active]; lp1 - PMHx: 04:48 None; lp1 - PSHx: 04:48 None; lp1 - Immunization history:: Adult Immunizations up to date. - Social history:: Smoking status: Patient reports the use of cigarette tobacco products, cigars. - Family history:: not pertinent. ROS: 05:35 Constitutional: Negative for fever, chills, and weight loss, Eyes: Negative for injury, enrico pain, redness, and discharge, Neck: Negative for injury, pain, and swelling, Cardiovascular: Negative for chest pain, palpitations, and edema, Respiratory: Negative for shortness of breath, cough, wheezing, and pleuritic chest pain, Abdomen/GI: Negative for abdominal pain, nausea, vomiting, diarrhea, and constipation, Back: Negative for injury and pain, : Negative for injury, bleeding, discharge, and swelling, MS/Extremity: Negative for injury and deformity, Skin: Negative for injury, rash, and discoloration, Neuro: Negative for headache, weakness, numbness, tingling, and seizure, Psych: Negative for depression, anxiety, suicide ideation, homicidal ideation, and hallucinations, Allergy/Immunology: Negative for hives, rash, and allergies, Endocrine: Negative for neck swelling, polydipsia, polyuria, polyphagia, and marked weight changes, Hematologic/Lymphatic: Negative for swollen nodes, abnormal bleeding, and unusual bruising. 05:35 ENT: Positive for Teeth pain Exam: 05:35 Constitutional: This is a well developed, well nourished patient who is awake, alert, enrico and in no acute distress. Head/Face: Normocephalic, atraumatic. Eyes: Pupils equal round and reactive to light, extra-ocular motions intact. Lids and lashes normal. Conjunctiva and sclera are non-icteric and not injected. Cornea within normal limits. Periorbital areas with no swelling, redness, or edema. Neck: Trachea midline, no thyromegaly or masses palpated, and no cervical lymphadenopathy. Supple, full range of motion without nuchal rigidity, or vertebral point tenderness. No Meningismus. Chest/axilla: Normal chest wall appearance and motion. Nontender with no deformity. No lesions are appreciated. Cardiovascular: Regular rate and rhythm with a normal S1 and S2. No gallops, murmurs, or rubs. Normal PMI, no JVD. No pulse deficits. Respiratory: Lungs have equal breath sounds bilaterally, clear to auscultation and percussion. No rales, rhonchi or wheezes noted. No increased work of breathing, no retractions or nasal flaring. Abdomen/GI: Soft, non-tender, with normal bowel sounds. No distension or tympany. No guarding or rebound. No evidence of tenderness throughout. Back: No spinal tenderness. No costovertebral tenderness. Full range of motion. Male : Normal genitalia with no discharge or lesions. Skin: Warm, dry with normal turgor. Normal color with no rashes, no lesions, and no evidence of cellulitis. MS/ Extremity: Pulses equal, no cyanosis. Neurovascular intact. Full, normal range of motion. Neuro: Awake and alert, GCS 15, oriented to person, place, time, and situation. Cranial nerves II-XII grossly intact. Motor strength 5/5 in all extremities. Sensory grossly intact. Cerebellar exam normal. Normal gait. Psych: Awake, alert, with orientation to person, place and time. Behavior, mood, and affect are within normal limits. 05:35 ENT: Mouth: Lips: normal, moist, Oral mucosa: normal, pink and intact, moist, Gums: normal with healthy appearance, Tongue: is normal, drooling, is not appreciated, fractured tooth. Vital Signs: 04:46 BP 129 / 85; Pulse 80; Resp 18; Temp 98.1(O); Pulse Ox 98% on R/A; Weight 99.79 kg (R); lp1 Height 5 ft. 9 in. (175.26 cm); Pain 10/10; 04:46 Body Mass Index 32.49 (99.79 kg, 175.26 cm) lp1 MDM: 04:52 Patient medically screened. enrico 05:38 Data reviewed: vital signs, nurses notes. [facility] 05:42 Differential diagnosis: dental caries, gingivitis, dental abscess, gingivostomatitis. [facility] Data interpreted: biomedical service engineer: not applicable for this patient encounter. Counseling: I had a detailed discussion with the patient and/or guardian regarding: the historical points, exam findings, and any diagnostic results supporting the discharge/admit diagnosis, the need for outpatient follow up, for definitive care, a dentist. ED course: [facility] [employer], Monday morning. Administered Medications: 05:51 Drug: Motrin 800 mg Route: PO; lp1 05:52 Follow up: Response: Medication administered at discharge. lp1 Disposition: 01/19/20 05:39 Discharged to Home. Impression: Cracked tooth, Dental caries. - Condition is Stable. - Discharge Instructions: Dental Pain, Tooth Injuries, Dental Pain, [id number], Diet and Dental Disease, Tooth Injuries, [id number]. - Prescriptions for Tylenol- Codeine #3 300-30 mg Oral Tablet - take 2 tablets by ORAL route every 6 hours As needed; 20 tablet. Ibuprofen 600 mg Oral Tablet - take 1 tablet by ORAL route every 6 hours As needed take with food; 20 tablet. Clindamycin HCl 300 mg Oral Capsule - take 1 capsule by ORAL route every 6 hours for 7 days; 28 capsule. - Medication Reconciliation Form, Thank You Letter, Antibiotic Education, Prescription Opioid Use form. - Follow up: Private Physician; When: 2 - 3 days; Reason: Recheck today's complaints, Continuance of care, Re-evaluation by your physician. Follow up: Fugler, Yemi, DDS; When: 2 - 3 days; Reason: Recheck today's complaints, Re-evaluation by your physician. - Problem is new. - Symptoms have improved. Signatures: Jacky Chapin MD MD cha Pena, Laura RN RN lp1 Corrections: (The following items were deleted from the chart) 04:48 04:48 Social history: Smoking status: Reported history of juuling and/or vaping. lp1 lp1 05:54 05:39 01/19/2020 05:39 Discharged to Home. Impression: Cracked tooth; Dental caries. lp1 Condition is Stable. Forms are Medication Reconciliation Form, Thank You Letter, Antibiotic Education, Prescription Opioid Use. Follow up: Private Physician; When: 2 - 3 days; Reason: Recheck today's complaints, Continuance of care, Re-evaluation by your physician. Follow up: Yemi Flannery; When: 2 - 3 days; Reason: Recheck today's complaints, Re-evaluation by your physician. Problem is new. Symptoms have improved. enrico
[2020-01-19] MEDS ORDERED: IBUPROFEN 400 MG TAB ONE (05:56)
[2020-01-19 06:01] VITALS: BP 129/85; TEMP 98.1; O2SAT 98
== END 2020-01-19 05:54 | disposition home or self-care (01) ==
LOC: ER 04:25
DX: K02.9 Dental caries, unspecified (principal); Z72.0 Tobacco use
CPT/HCPCS: 99283

== ENCOUNTER 2021-05-24 05:46 | Emergency (ER) | payer SELFPAY ==
[2021-05-24] MEDS ORDERED: LIDOCAINE 1% MPF 5 ML VIAL ONE (08:01)
[2021-05-24] MEDS ORDERED: TETANUS & DIPHTHERIA TOX,ADULT 0.5 ML VIAL ONE (08:02)
[2021-05-24] MEDS ORDERED: HYDROCODONE/APAP 10/325 TAB ONE (08:02)
[2021-05-24] MEDS ORDERED: KETOROLAC 30 MG/ML INJ ONE (09:05)
--- NOTE | 2021-05-24 10:49 | ER ---
Nurse's Notes [facility] Name: Benjamin Mendiola Age: 20 yrs Sex: Male : 2000 Arrival Date: 05/24/2021 Time: 05:50 Bed 15 Private MD: Diagnosis: Cutaneous abscess of right axilla Presentation: 05/24 06:33 Chief complaint: Patient states: he has an abscess under his right arm x 4 days which bb has gotten very big and is painful. Coronavirus screen: At this time, the client does not indicate any symptoms associated with coronavirus-19. Ebola Screen: No symptoms or risks identified at this time. Initial Sepsis Screen: Does the patient meet any 2 criteria? No. Patient's initial sepsis screen is negative. Does the patient have a suspected source of infection? No. Patient's initial sepsis screen is negative. Risk Assessment: Do you want to hurt yourself or someone else? Patient reports no desire to harm self or others. Onset of symptoms was May 20, 2021. 06:33 Method Of Arrival: Ambulatory bb 06:33 Acuity: ALONSO 4 bb Triage Assessment: 06:35 General: Appears in no apparent distress. uncomfortable, Behavior is calm, cooperative. bb Pain: Complains of pain in right axilla. Neuro: Level of Consciousness is awake, alert, obeys commands, Oriented to person, place, time, situation. Cardiovascular: Capillary refill < 3 seconds Patient's skin is warm and dry. Respiratory: Respiratory effort is even, unlabored, Respiratory pattern is regular. GI: No signs and/or symptoms were reported involving the gastrointestinal system. Derm: Abscess located on right axilla is golf ball sized. Musculoskeletal: Circulation, motion, and sensation intact. Historical: - Allergies: 06:35 Aspirin; bb - Home Meds: 06:35 None [Active]; bb - PMHx: 06:35 recurring abscesses; bb - PSHx: 06:35 removal of abscess; bb - Immunization history:: Adult Immunizations up to date, Client reports having NOT received the Covid vaccine. - Social history:: Smoking status: Patient denies any tobacco usage or history of. Patient uses street drugs, marijuana, Patient/guardian denies using alcohol. Screenin:04 Abuse screen: Denies threats or abuse. Nutritional screening: No deficits noted. kh1 Tuberculosis screening: No symptoms or risk factors identified. Fall Risk None identified. Assessment: 08:30 General: Appears in no apparent distress. Pain: Complains of pain in right arm Pain kh1 currently is 10 out of 10 on a pain scale. Quality of pain is described as sharp, throbbing. 10:00 Reassessment: Patient appears in no apparent distress at this time. No changes from [facility] previously documented assessment. Patient and/or family updated on plan of care and expected duration. Pain level reassessed. 10:00 Reassessment: Patient appears in no apparent distress at this time. No changes from [facility] previously documented assessment. Patient and/or family updated on plan of care and expected duration. Pain level reassessed. Vital Signs: 06:33 BP 123 / 91; Pulse 81; Resp 18 S; Temp 98.4(O); Pulse Ox 100% on R/A; Weight 104.33 kg bb (R); Height 5 ft. 9 in. (175.26 cm) (R); Pain 8/10; 08:30 BP 110 / 74; Pulse 79; Resp 20; Temp 97.7; Pulse Ox 100% on R/A; kh1 11:00 BP 131 / 77; Pulse 82; Resp 22; Temp 98.5; Pulse Ox 99% on R/A; kh1 06:33 Body Mass Index 33.96 (104.33 kg, 175.26 cm) ED Course: 05:50 Patient arrived in ED. bp1 06:35 Triage completed. bb 06:35 Arm band placed on Patient placed in waiting room, Patient notified of wait time. Family accompanied patient. 07:18 Gume Foreman NP is PHCP. pm1 07:18 Jermaine Gill MD is Attending Physician. pm1 07:32 Cassy Ritter is Primary Nurse. kh1 11:00 Wound Culture Sent. kh1 11:04 Patient has correct armband on for positive identification. Bed in low position. Call [facility] light in reach. Side rails up X 1. 11:04 Assist provider with I \T\ D: of an abscess on right axilla. kh1 11:33 Patient did not have IV access during this emergency room visit. [facility] Administered Medications: 07:30 Drug: Tetanus-Diphtheria Toxoid Adult 0.5 ml {Skein Winding Operator: [employer]. Exp: kh1 06/18/2022. Lot #: [id number]. } Route: IM; Site: left gluteus; 07:50 Drug: HYDROcodone-acetaminophen 10 mg-325 mg 1 tabs Route: PO; kh1 07:50 Drug: Lidocaine (1 %) 5 ml Volume: 5 ml; Route: Infiltration; kh1 08:50 Drug: Ketorolac 60 mg Route: IM; Site: left gluteus; 1 Outcome: 10:48 Discharge ordered by MD. pm1 11:33 Discharged to home ambulatory. kh1 11:33 Condition: good 11:33 Discharge instructions given to patient. 11:38 Patient left the ED. 1 Signatures: Peyton Hunter RN RN Gume Tirado NP LIGHT RAIL SIGNAL TECHNICIAN pm1 [place] [facility]
--- NOTE | 2021-05-24 10:49 | EDPHYS ---
Physician Documentation [facility] Name: Benjamin Mendiola Age: 20 yrs Sex: Male : 2000 Arrival Date: 05/24/2021 Time: 05:50 Bed 15 Private MD: ED Physician Jermaine Gill HPI: 05/24 10:47 This 20 yrs old Male presents to ER via Ambulatory with complaints of Boil. pm1 10:47 The patient presents with an abscess of the right axilla. Description: swollen. Onset: pm1 The symptoms/episode began/occurred 4 day(s) ago. Possible cause(s): unknown. Associated signs and symptoms: Pertinent negatives: discharge, drainage, fever. Modifying factors: the symptoms are aggravated by pressure, touching. Severity of symptoms: in the emergency department the symptoms are actually worse, since yesterday. The patient has experienced similar episodes in the past, a few times. The patient has not recently seen a physician, and does not have an established primary care provider. Historical: - Allergies: 06:35 Aspirin; bb - Home Meds: 06:35 None [Active]; bb - PMHx: 06:35 recurring abscesses; bb - PSHx: 06:35 removal of abscess; bb - Immunization history:: Adult Immunizations up to date, Client reports having NOT received the Covid vaccine. - Social history:: Smoking status: Patient denies any tobacco usage or history of. Patient uses street drugs, marijuana, Patient/guardian denies using alcohol. ROS: 10:47 Constitutional: Negative for fever, chills, and weight loss, Cardiovascular: Negative pm1 for chest pain, palpitations, and edema, Respiratory: Negative for shortness of breath, cough, wheezing, and pleuritic chest pain. 10:47 Abdomen/GI: Negative for abdominal pain, nausea, vomiting, diarrhea, and constipation, MS/Extremity: Negative for injury and deformity, Neuro: Negative for headache, weakness, numbness, tingling, and seizure. 10:47 Skin: Positive for abscess, of the right axilla. 10:47 All other systems are negative. Exam: 10:47 Constitutional: This is a well developed, well nourished patient who is awake, alert, pm1 and in no acute distress. Head/Face: Normocephalic, atraumatic. 10:47 Back: No spinal tenderness. No costovertebral tenderness. Full range of motion. 10:47 MS/ Extremity: Pulses equal, no cyanosis. Neurovascular intact. Full, normal range of motion. 10:47 Cardiovascular: Exam negative for acute changes, Rate: normal, Rhythm: regular, Pulses: no pulse deficits are appreciated. 10:47 Respiratory: Exam negative for acute changes, respiratory distress, shortness of breath. 10:47 Abdomen/GI: Exam negative for acute changes, Inspection: abdomen appears normal, Palpation: abdomen is soft and non-tender. 10:47 Skin: Appearance: normal except for affected area, abscess, that is moderate sized, approximately 3 cm(s), of the right axilla, with fluctuance, No drainage, no surrounding cellulitis. 10:47 Neuro: Exam negative for acute changes, Orientation: is normal, Mentation: is normal, Motor: is normal, moves all fours. Vital Signs: 06:33 BP 123 / 91; Pulse 81; Resp 18 S; Temp 98.4(O); Pulse Ox 100% on R/A; Weight 104.33 kg bb (R); Height 5 ft. 9 in. (175.26 cm) (R); Pain 8/10; 08:30 BP 110 / 74; Pulse 79; Resp 20; Temp 97.7; Pulse Ox 100% on R/A; kh1 11:00 BP 131 / 77; Pulse 82; Resp 22; Temp 98.5; Pulse Ox 99% on R/A; kh1 06:33 Body Mass Index 33.96 (104.33 kg, 175.26 cm) Procedures: 10:47 I \T\ D: Incision and drainage was performed for an abscess of the right axilla. Prepped pm1 with Betadine, Anesthetized with 5 ml's 1% Lidocaine. Incised with #11 blade. Drained moderate amount serosanguinous fluid. Loculations removed. Cultures obtained. Abscess cavity explored. Packed with iodoform gauze, Dressing: sterile 4x4 gauze, the patient tolerated the procedure well. MDM: 07:19 Patient medically screened. pm1 10:47 Data reviewed: vital signs. Data interpreted: Pulse oximetry: on room air is 100 %. pm1 Interpretation: normal. Counseling: I had a detailed discussion with the patient and/or guardian regarding: the historical points, exam findings, and any diagnostic results supporting the discharge/admit diagnosis, the need for outpatient follow up, a general surgeon, to return to the emergency department if symptoms worsen or persist or if there are any questions or concerns that arise at home. 05/24 10:48 Order name: Wound Culture pm1 05/24 07:24 Order name: Incision \T\ Drainage Setup; Complete Time: 08:04 pm1 Administered Medications: 07:30 Drug: Tetanus-Diphtheria Toxoid Adult 0.5 ml {[employer] Repairer: [place]. Exp: kh1 06/18/2022. Lot #: [id number]. } Route: IM; Site: left gluteus; 07:50 Drug: HYDROcodone-acetaminophen 10 mg-325 mg 1 tabs Route: PO; kh1 07:50 Drug: Lidocaine (1 %) 5 ml Volume: 5 ml; Route: Infiltration; kh 08:50 Drug: Ketorolac 60 mg Route: IM; Site: left gluteus; kh1 Disposition Summary: 05/24/21 10:48 Discharge Ordered Location: Home pm1 Problem: new pm1 Symptoms: have improved pm1 Condition: Stable pm1 Diagnosis - Cutaneous abscess of right axilla pm1 Followup: pm1 - With: Emergency Department - When: As needed - Reason: Worsening of condition Followup: pm1 - With: Private Physician - When: 2 - 3 days - Reason: Recheck today's complaints, Continuance of care, Re-evaluation by your physician Discharge Instructions: - Discharge Summary Sheet pm1 - Skin Abscess pm1 - Incision and Drainage pm1 Forms: - Medication Reconciliation Form pm1 - Thank You Letter pm1 - Antibiotic Education pm1 - Prescription Opioid Use pm1 - Work release form pm1 Prescriptions: - acetaminophen-codeine 300-15 mg Oral tablet - take 2 tablet by ORAL route every 6 hours As needed as needed; 20 tablet; pm1 Refills: 0, Product Selection Permitted - Bactrim DS 800-160 mg Oral Tablet - take 1 tablet by ORAL route every 12 hours for 10 days; 20 tablet; Refills: 0, pm1 Product Selection Permitted Signatures: Dis[facility] Peyton Rios RN RN bb Marinas, Patrick, NP [employer] pm1 Cassy Ritter [facility]
[2021-05-24 11:48] VITALS: BP 131/77; TEMP 98.5; O2SAT 99
== END 2021-05-24 11:38 | disposition home or self-care (01) ==
LOC: ER 05:46
PROC: 0J9D0ZZ Drainage of Right Upper Arm Subcutaneous Tissue and Fascia, Open Approach (ICD-10-PCS; principal; 2021-05-24)
DX: L02.411 Cutaneous abscess of right axilla (principal); Z23 Encounter for immunization; Z88.6 Allergy status to analgesic agent
CPT/HCPCS: 87070; 87077; 87186; 87205; 90471; 90714; 96372; 99284